=== PATIENT | male | born 1965 | race African-American/Black ===

== ENCOUNTER 2019-05-31 09:56 | Inpatient (IN) | payer OTHER ==
[~2019-05-31] VITALS: Ht 180.3 cm; Wt 87.1 kg
[2019-05-31] MEDS ORDERED: TYLENOL325 MG PO ×2 (10:36→10:37)
[2019-05-31] MEDS ORDERED: DULCOLAX10 MG RECTAL (10:39)
[2019-05-31] MEDS ORDERED: FIORINAL 50-321 EACH PO (10:40)
[2019-05-31] MEDS ORDERED: CIPRODEX OTIC7.5 ML OTIC (10:43)
[2019-05-31] MEDS ORDERED: HEPARIN SO5000 UNIT/ SUBQ (10:45)
[2019-05-31] MEDS ORDERED: KEPPRA100 MG/1 M PO ×2 (10:47→10:49)
[2019-05-31] MEDS ORDERED: PHENYTOIN100 MG/41 PO (10:51)
[2019-05-31] MEDS ORDERED: MIRALAX119 GM PO (10:53)
[2019-05-31] MEDS ORDERED: POTASSIUM20 PO (10:56)
[2019-05-31] MEDS ORDERED: SENNA PLUS 8.61 EACH PO (10:58)
--- NOTE | 2019-05-31 15:00 | NUR ---
1400 ADMITTED TO ROOM 504. PATIENT IS ALERT AND ORIENTED X1 TO PERSON ONLY. 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 [employer]. LUNGS ARE CLEAR. ABD IS SOFT WITH BSX4. VOIDED EDSON COLORED URINE X2. REGULAR DIET WITH THIN LIQUIDS ORDERED FOR PATIENT. CALL LIGHT AT BEDSIDE. ENCOURAGED PO FLUIDS. FALL AND SAFETY PROTOCOLS IN PLACE. HAS OCCASIONAL HEADACH AND BACK PAIN. PT/OT/ST EVALS TO BE DONE IN AM WILL CONTINUE TO MONITER. RING FACER NOTIFIED OF PATIENTS ADMISSION.
--- NOTE | 2019-05-31 17:00 | NUR ---
pt new to [facility] acute rehab from [facility] on [address]. no family or friends present. pt a & o to self. unable to reach family. will cont following as needed for dc needs.
[2019-05-31 19:10] VITALS: BP 133/91
[2019-05-31] MEDS ORDERED: BUTALB-APAP-CA1 EACH PO (19:10)
[2019-05-31 19:17] VITALS: BP 130/83
--- NOTE | 2019-06-01 04:50 | NUR ---
Assessments completed. pt a&o to self. pt knew he was at a hospital but could not tell nurse which one. pt is forgetful and requires reorientation. pt is impulsive when he wants to use the bathroom. bed alarm on and fall prec in place. seizure pads in place. pt stated that he hasn't had a seizure in a long time when asked by the nurse. pt c/o of headache which was relief by tylenol. pt kept trying to dress up and get ready for the day. prn med was given for agitation. pt has been getting up with one assist contact guard and with a walker at times to the bathroom. pt has been drinking alot of water over night which is requiring him to urinate more frequently. there have been no s/s of distress noted. will cont to monitor
[2019-06-01 06:14] LABS: HEMATOCRIT 40.6 % (42.0-52.0); HEMOGLOBIN 13.6 gm/dL (14.0-18.0); MCH 29.8 pg (26.0-34.0); MCHC 33.6 g/dL (28.0-37.0); MCV 88.8 fL (80.0-100.0); RBC 4.57 mil/uL (4.50-6.00); WBC 9.4 thou/uL (4.0-11.0)
[2019-06-01 06:26] LABS: CALCIUM 8.8 mg/dL (8.5-10.1); CREATININE 0.7 mg/dL (0.7-1.3); POTASSIUM 3.8 mmol/L (3.5-5.1)
[2019-06-01 08:03] VITALS: BP 108/74
--- NOTE | 2019-06-01 12:00 | NUR ---
pt was up in wheel chair in dinning room for lunch, not visitor present or family. unable to discuss dcp with pt rt a & o self. will cont following as needed for dc needs .
--- NOTE | 2019-06-01 15:35 | NUR ---
MET WITH SISTER IN ROOM THIS DATE, SISTER PROVIDED PLOF INFORMATION, DETAILED IN PT ADMISSION HISTORY. SISTER PROVIDED FOLLOWING CONTACT INFORMATION, MEENU (SISTER): [phone] DORA (BROTHER): [phone]
[2019-06-01 15:45] LABS: FOLIC ACID 7.6 ng/mL (8.6-58.9); TSH 3.847 uIU/mL (0.358-3.740)
--- NOTE | 2019-06-01 18:05 | NUR ---
ASSUMED CARE AT 0700, PT A&O TO PERSON, CONFUSED AND INPULSIVE AT TIMES. VS STABLE, O2 ON RA. NO IV ACCESS, STAND BY ASSIST WITH GAIT BELT. PT HAD EEG DONE TODAY, AWAITING RESULTS. TOLERATED THERAPY. MEDS CRUSHED WITH APPLESAUCE PER ST. SEIZURE PRECAUTIONS CONTINUED. LAST BM 06/01/19, VOIDS WITH URINAL/BATHROOM. BED IN LOWEST POSITION, CALL LIGHT WITHIN REACH, WILL CONTINUE TO MONITOR PER POC.
[2019-06-01 20:10] VITALS: BP 100/62
--- NOTE | 2019-06-02 04:31 | NUR ---
UP TO TOILET WITH GAIT BELT AND CONTACT GUARD ASSIST, DOES NOT USE CALL LIGHT, BED ALARM ON DUE TO PATIENT GETTING UP IMPULSIVELY TO STAND UP LOOKING OUT THE WINDOW AND WHEN UP TO TOILET. HAS VOIDED HOURLY OVERNIGHT AND HAD ONE LARGE BM. INSISTS ON WEARING CLOTHES AND BRIEF. BEDRAILS PADDED AND PATIENT FREQUENTLY REMINDED TO STAY IN BED FOR HIS OWN SAFETY, FRUSTRATED WITH LIMITS TO THE POINT OF AGITATION, GIVEN ZYPREXA AND AGAIN ENCOURAGED TO LIE DOWN AND GET SOME REST SO THAT HE WILL NOT BE TOO TIRED TO PARTICIPATE IN THERAPY TODAY. DOES NOT SPEAK LOUDLY.
[2019-06-02 08:00] VITALS: BP 136/72
--- NOTE | 2019-06-02 12:45 | NUR ---
ASSUMED CARE AT 0700, PT IMPULSIVE, ALERT AND ORIENTED TO PERSON. NO ACUTE DISTRESS NOTED. VS STABLE, O2 ON RA. PT C/O HEADACHE RELIEVED WITH PRN TYLENOL 650MG. STAND BY ASSIST WITH GAIT BELT, TOLERATES MEDS CRUSHED WITH APPLESAUCE. TOLERATED THERAPY WELL TODAY. NO IV ACCESS. PT CONTINENT AND USES BR, VOID X 2, BM TODAY. BED IN LOWEST POSITION, CALL LIGHT WITHIN REACH, WILL CONTINUE TO MONITOR PER POC.
[2019-06-02 20:15] VITALS: BP 122/74
--- NOTE | 2019-06-03 01:17 | NUR ---
PT ASSESSMENT COMPLETED AND VSS. MEDS GIVEN ORDERED AND WELL TOLERATED. FALL PRECAUTIONS IN PLACE. PT VERY IMPULSIVE AND AGITATED AT TIMES. PT STATING THAT HE WANTS TO GO HOME AND WHY ARE WE TRYING TO KEEP HIM HERE LIKE THIS. PROVIDED MUCH EMOTIONAL SUPPORT. SLEEPING ON AND OFF. MEDICATION FOR AGITATION HELPFUL BUT PT STILL IMPULSIVE. UNSTEADY. PT VERY FAST WHEN GETTING OUT OF BED. HAVING TO RUN FAST TO THE ROOM REPEATEDLY. PT HAD A SOFT BM AND VOIDING LARGE AMOUNTS. WILL CONTINUE TO MONITOR CLOSELY.
[2019-06-03 09:00] VITALS: BP 116/73
--- NOTE | 2019-06-03 10:29 | NUR ---
ASSUMED CARE AT 0700, VSS ON RA. REPORTS FROM NIGHT NURSE THAT PT WAS VERY IMPULSIVE DURING NIGHT AND DIDN'T SLEEP WELL. PT HAS HX OF SMOKING. NOTIFIED ANNIKA AND ASKED IF PT CAN BE ON NICOTINE PATCH AND HAS SLEEPING AID. PT ALERT AND ORIENTED TO PERSON. FOLLOW COMMANDS. PT C/O HEADACHE NOT ABLE TO RATE PAIN PRN FIORCET GIVEN. WAS UNSTEADY GAIT THIS AM, BUT MORE STEADY WHILE WORKING WITH PHYSICAL THERAPIST. PT UP STAND BY ASSIST WITH GAIT BELT TO GO TO BATHROOM FOR URINATION. TOLERATES MEDS WHOLE WITH APPLESAUCE THIS AM WITH ST. KEPPRA LIQUID GIVEN ORDERED. PT HAS HX OF SEIZURE AND ON SEIZURE PRECAUTION. BED RAILS PADDED. OFFERED SUPPORTIVE CARE. DISCUSSED ABOUT CARE PLAN. ENCOURAGED PT TO CALL FOR HELP. PT HAS BEEN COOPERATIVE WELL WITH THIS [employer] ME[employer]IC. TOLERATED THERAPY WELL TODAY. NO IV ACCESS. UP WITH OT AT THIS MOMENT. FALL PRECAUTION IN PLACE. CONTINUE TO BE ON ELOPEMENT RISK WHEN IN WC. UNIT DOORS CLOSED WHEN PT UP. PRECAUTION IN PLACE. CALL LIGHT WITHIN REACH WHEN PT IN ROOM WILL CONTINUE TO MONITOR PER POC.
[2019-06-03 21:10] VITALS: BP 137/75
--- NOTE | 2019-06-04 01:57 | NUR ---
FIORCET AT HS, NO C/O HEADACHE AT THIS TIME. UP TO BATHROOM WITHOUT USING CALL LIGHT. STRONG BUT UNSTEADY GAIT. NEEDS ENCOURAGEMENT TO LIE DOWN AFTER SITTING AT THE EDGE OF BED FOR A FEW MINUTES. FREQUENTLY STATES THAT HE WANTS TO GO HOME. DRINKING WATER AND VOIDING LARGE AMOUNTS.
[2019-06-04 09:22] VITALS: BP 137/75
--- NOTE | 2019-06-04 11:03 | NUR ---
ASSUMED CARE AT 0700, NIGHT RN SAID PT DIDN'T SLEEP WELL EVEN TOOK ZYPREXA AND NEUROTIN. VSS ON RA. PT C/O HEADACHE NOT ABLE TO RATE PAIN PRN TYLENOL GIVEN. IMPULSIVE, FORGETFUL, ALERT TO SELF. REDIRECTABLE. PT UP STAND BY ASSIST WITH GAIT BELT TO GO TO BATHROOM FOR URINATION. CONT B&B HAD BM THIS AM. TOLERATES MEDS WHOLE WITH APPLESAUCE PT HAS HX OF SEIZURE AND ON SEIZURE PRECAUTION. BED RAILS PADDED. OFFERED SUPPORTIVE CARE. DISCUSSED ABOUT CARE PLAN. ENCOURAGED PT TO CALL FOR HELP. PT HAS BEEN COOPERATIVE WELL WITH THIS [employer]. TOLERATED THERAPY WELL TODAY. UP WITH OT AT THIS MOMENT. FALL PRECAUTION IN PLACE. CONTINUE TO BE ON ELOPEMENT RISK WHEN IN WC. UNIT DOORS CLOSED WHEN PT UP. PRECAUTION IN PLACE. CALL LIGHT WITHIN REACH WHEN PT IN ROOM WILL CONTINUE TO MONITOR PER POC.
[2019-06-04 19:04] VITALS: BP 98/59
--- NOTE | 2019-06-05 03:01 | NUR ---
NEEDING ENVOURAGEMENT TO LIE DOWN IN BED AFTER EACH URGENT TRIP TO TOILET, BUT LESS RESTLESS THAN 24 HOURS AGO. CONTACT GUARD ASSIST TO BATHROOM, GAIT IS STRONG BUT UNSTEADILY SWAYING SIDE TO SIDE. PLEASANT, WOULD LIKE TO GO HOME. SIDERAILS PADDED.
[2019-06-05 08:30] VITALS: BP 116/79
--- NOTE | 2019-06-05 18:15 | NUR ---
ASSUMED CARE AT 0700, PT A&O TO PERSON. VS STABLE, O2 ON RA. PT DENIES PAIN BUT STATED SEVERAL TIMES THAT HE WANTS TO GO HOME. PT ATTEMPTED TO LEAVE UNIT CONSTANTLY. REDIRECTED PT WITH LITTLE COOPERATION. PT HAS NO IV ACCESS. PT A STAND BY ASSIST X 1 AND USES BATHROOM, LAST BM 06/04/19. TOLERATES MEDS CRUSHED IN APPLESAUCE. SEIZURE PRECAUTIONS CONTINUED, BED IN LOWEST POSITION, CALL LIGHT WITHIN REACH, WILL CONTINUE TO MONITOR PER POC.
[2019-06-05 20:31] VITALS: BP 138/81
--- NOTE | 2019-06-06 00:44 | NUR ---
PT ALERT AND ORIENTED X 1, CONFUSED. IMPULSIVE, SETS OFF BED ALARM FREQUENTLY. VOIDING WITHOUT DIFFICULTY IN TOILET. PT TAKES MEDS CRUSHED IN APPLESAUCE WITHOUT DIFFICULTY. PT DENIES PAIN OR DISCOMFORT. BED ALARM ON FOR SAFETY. PT EASILY VISIBLE FROM NURSES STATION. PT C/O BEING HUNGRY. SANDWICH PROVIDED AND PT HAS BEEN QUIET SINCE. PT CHECKED ON MORE FREQUENTLY THAN HOURLY ROUNDS.
[2019-06-06 08:00] VITALS: BP 101/67
--- NOTE | 2019-06-06 11:46 | EEG ---
[facility] [place] [address] ELECTROENCEPHALOGRAM Name: LESTER DC Room #: 504 ADM IN M.R.#: [id number] Admission: 05/31/19 Attend Phys: Anoop Obrien MD Discharge: Date of : 61 Report #: [id number] THIS REPORT FOR: //name// CC: Anoop Obrien [facility] physician/PCP DATE OF SERVICE: 06/01/2019 This patient's EEG was done to evaluate the patient for the possibility of seizure. EEG was done by placing the electrode by standard 10-20 system of electrode placement. Both referential and sequential montages were used for recording. Background activity in this patient's EEG is about 8 Hz and 30 microvolt. It is a symmetrical activity. The patient went to sleep that is associated with bilateral slowing and vertex sharp waves. Photic stimulation is unremarkable. Throughout the record, no active epileptiform activity was noticed. IMPRESSION: This patient's EEG does not demonstrate any active epileptiform activity. It is intermixed with theta range slowing on both sides. That is a nonspecific abnormality, which can occur with dementia, encephalopathy, effect of psychotropic medication, etc. Clinical correlation is recommended. <ELECTRONICALLY SIGNED> By: Christopher Murray MD 06/06/19 1146 [id number] Christopher Murray MD /nt
--- NOTE | 2019-06-06 13:12 | NUR ---
Nutrition followup: pt changed to low risk due to excellent intake 75-100% of meals. Continues on mechanically altered chopped diet followed by ST. Pt receives ensure daily but no documentation of this, alerted nsg. Pt unable to communicate with RD. Folate level low-7.6. On folic acid supplement and B12. No new weight since 05/31. Follow weekly.
--- NOTE | 2019-06-06 18:33 | NUR ---
ASSUMED CARE AT 0700, PT A&O TO PERSON, IMPULSIVE ANF FORGETFUL. SEIZURE PRECAUTIONS CONTINUED, STAND BY ASSIST WITH GAIT BELT. PT CONTINUES TO STATE THAT HE WANTS TO GO HOME AND ATTEMPTED TO LEAVE SEVERAL TIMES. NO IV ACCESS, DENIES PAIN. TOLERATED THERAPY, USES BR, LAST BM 06/04/2019, ON ROUTINE LAXATIVES. MEDS CRUSHED WITH APPLESAUCE. BED IN LOWEST POSITION, CALL LIGHT WITHIN REACH, WILL CONTINUE TO MONITOR PER POC.
--- NOTE | 2019-06-06 18:40 | NUR ---
PT DRANK 100% OF ENSURE THAT CAME ON TRAY FOR DINNER
--- NOTE | 2019-06-06 19:04 | HC ---
[facility] [place] [address] CONSULTATION Name: LESTER DC Room #: [facility] ADM IN M.R.#: [id number] Admission: 05/31/19 Attend Phys: Anoop Obrien MD Discharge: Date of : 61 Report #: [id number] THIS REPORT FOR: //name// CC: Anoop Obrien [facility] physician/PCP DATE OF SERVICE: 06/04/2019 ATTENDING PHYSICIAN: Anoop Obrien MD BELL PERSON: Jorge Gamez, PhD CLINICAL PRESENTATION: The patient is a 54-year-old -[place] male admitted to the [facility] Rehabilitation Unit for comprehensive inpatient rehabilitation program. He was initially presented to the [facility] Emergency Room after being found down and unresponsive. He was noted to have seizures en route and oozing blood from the left ear. The patient was intubated and treated in ICU. A CT scan revealed multiple acute traumatic injuries with a left subdural hematoma, bilateral subarachnoid hemorrhage, left temporal bone fracture, and left frontal intraparenchymal hemorrhage. The patient has a history of alcohol and cocaine abuse. His diagnostic assessment on admission to the rehab unit included traumatic subdural hematoma, traumatic subarachnoid hemorrhage, traumatic brain injury with loss of consciousness, status post fall, traumatic skull fracture, seizure disorder, aspiration pneumonia, aphasia, dysphagia, left ear infection, chronic compression fractures, hypertension and polysubstance abuse. A complete description of his medical condition and history along with medications can be found in his medical record. Neuropsychological consultation was requested to provide assistance in the assessment of cognitive and emotional status and to provide recommendations and services. Prior to his recent admission, the patient is reported to have been living with his mother. His mother reportedly has Parkinson's disease. He has a brother and sister who are involved in his care. The patient is reported to have had a remote TBI and seizure disorder. He has required assistance from his brother to manage his medication. 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 Communication deficits were described as interfering with his ability to maintain independence and employment. TECHNIQUES UTILIZED: Clinical interview, review of medical records, staff consultation and behavioral observation, mini mental status exam 2 standard version. EXAMINATION FINDINGS AND CLOCK DRAWING: The patient was alert during the assessment. However, he is amnestic and unable to describe the events leading [facility] [address] [place] [address] CONSULTATION Name: LESTER DC Room #: 504-1 [facility] IN [facility].#: [id number] Admission: 05/31/19 Attend Phys: Anoop Obrien MD Discharge: Date of : 61 Report #: [id number] to his hospitalization. He is not oriented to place or time. Current posttraumatic amnesia is suggested. He has severely impaired insight into his deficits. His speech is tangential and perseverative. The patient denies a history of alcohol or drug abuse. However, it is noted in the chart that he has a severe polysubstance abuse history. His performance on the brief version of the MMSE 2 was extremely low with a raw score of 0/16. He is hard of hearing. He was 0/3 for initial registration, 0/5 for orientation to time, 0/[address] and 0/3 for immediate recall. The patient was able to name 2 common objects. He was unable to read a sentence. Copying task suggests perseveration. Visual spatial construction deficits are noted. He could not draw a clock, place the hands or appropriately place numbers within it. Severe deficits in executive functioning are suggested. The patient is presenting in a state of posttraumatic amnesia. He is not oriented to place or time. Severe deficits in executive functioning, memory and visual spatial coordination are suggested. DIAGNOSTIC IMPRESSION: Delirium, acute, mixed level of activity Major neurocognitive disorder (dementia) -- likely a consequence of a traumatic brain injury and substance abuse -- with poor insight -- extent to be determined, likely moderate to severe. Polysubstance abuse (cocaine and alcohol). RECOMMENDATIONS: Upon discharge, the patient will likely require assistance in the management of medication, finances and nutrition. His family will need to be available to provide both supervision and structure for him to maintain safety. Frequent orientation and speech therapy to assist with cognitive stimulation and use of compensatory strategies to maintain safety. I will also attempt to contact family to clarify premorbid functioning. Thank you very much for allowing me to provide the consultation on this patient. <ELECTRONICALLY SIGNED> By: Jorge Gamez, PhD 06/06/19 [id number] Jorge Gamez, PhD /nt
[2019-06-06 19:12] VITALS: BP 100/60
--- NOTE | 2019-06-07 01:24 | NUR ---
PT ALERT AND ORIENTED X 1, CONFUSED. IMPULSIVE AT TIMES BUT NOT FREQUENTLY THE NIGHT BEFORE. VOIDING WITHOUT DIFFICULTY IN TOILET. PT TAKES MEDS CRUSHED IN APPLESAUCE. PT DENIES PAIN OR DISCOMFORT. BED ALARM ON AT ALL TIMES. PT APPEARS TO BE SLEEPING ON HOURLY ROUNDS.
[2019-06-07 08:00] VITALS: BP 100/66
--- NOTE | 2019-06-07 13:00 | NUR ---
team meeting, recommendation [facility]th with nursing only.
--- NOTE | 2019-06-07 14:47 | NUR ---
ASSESSMENT CHARTED. VSS. PT ALERT AND ORIENTED TO SELF WITH FORGETFULNESS. UP IN THE CHAIR. PARTICIPATED IN PT/OT/ SPEECH. CHECKED FREQUENTLY AND NEEDS MED. BED ALARM ON. REPORTS THAT HE WANTS TO GO HOME. PLAN FOR DISCHARGE ON THURSDAY. PROGRESSING WELL TOWARDS DISCHARGE GOAL. WILL CONTINUE TO MONITOR.
[2019-06-07 19:14] VITALS: BP 113/73
--- NOTE | 2019-06-08 03:06 | NUR ---
ASSUMED CARE AT APPROX 1900 EVENING 06/07. PT SITTING UP IN CHAIR AT CHANGE OF SHIFT. PT PLEASANT AND COOPERATIVE, FORGETFUL STATING HE WANTS TO GO HOME. PT MODIFIED INDEP IN ROOM TOLERATING WELL. PT TOOK HS MEDS WITH NO PROBLEMS. PT APPEARS TO BE SLEEPING SOUNDLY WITH HOURLY ROUNDING CHECKS. CALL LIGHT IN REACH. WILL CONTINUE TO MONITOR.
[2019-06-08 09:00] VITALS: BP 118/72
[2019-06-08] MEDS ORDERED: SENNA PLUS 8.61 EACH PO (10:38)
[2019-06-08] MEDS ORDERED: LEVETIRACE100 MG/1 M PO (10:38)
[2019-06-08] MEDS ORDERED: REMERON 30 MG T30 M1 PO (10:38)
[2019-06-08] MEDS ORDERED: FOLIC ACID1 MG PO (10:38)
[2019-06-08] MEDS ORDERED: VITAMIN B-12500 MCG PO (10:38)
--- NOTE | 2019-06-08 13:27 | NUR ---
DISCHARGE PLANNING. ANTICIPATED DISCHARGE TO HOME WITH HOME HEALTH SERVICES. PATIENT REFERRAL FAXED TO [facility]. CALL PLACED TO SERVANDO LUCAS TO NOTIFY. AWAITING RESPONSE.
[2019-06-08 13:46] VITALS: BP 118/72
--- NOTE | 2019-06-08 15:15 | H ---
[facility] [place] [address] HISTORY AND PHYSICAL Name: LESTER DC Room #: 504-1 [facility] IN M.R.#: [id number] Admission: 05/31/19 Attend Phys: Anoop Obrien MD Discharge: 06/08/19 Date of : 61 Report #: [id number] THIS REPORT FOR: //name// CC: Anoop Obrien [facility] physician/PCP DATE OF SERVICE: 05/31/2019 HISTORY AND PHYSICAL AND POST-ADMISSION PHYSICIAN EVALUATION HISTORY OF PRESENT ILLNESS: This is a 54-year-old -[place] male who originally presented to [facility] ER after being found down and unresponsive on 05/19/2019. He was noted to have seizures en route. He had blood oozing from his left ear. He was intubated, treated in the ICU. CT obtained revealed multiple acute traumatic injuries with a left subdural hematoma, bilateral subarachnoid hemorrhage, left temporal bone fracture extending into the external auditory canal and middle ear cavity, left frontal intraparenchymal hemorrhage. He also has T5-T8, L4-L5, chronic compression fracture. He was followed closely by Neurosurgery and Neurology, seizure medications adjusted. He failed a swallow evaluation, was placed on pureed with honey thickened liquids. He was treated for aspiration pneumonia. He does have a history of alcohol and cocaine abuse. Please see the full history and physical. As far as past medical history, habits, and social history, see the history and physical. MEDICATIONS: Please see the MAR. REVIEW OF SYSTEMS: Limited verbalizations. No specific complaints of chest pain, shortness of breath or abdominal discomfort. PHYSICAL EXAMINATION: GENERAL: A 54-year-old -[place] male. He is a limited historian. Limited verbalizations. HEENT: Facies appeared symmetric. EOMs appeared to be full. He will follow basic 1 step commands. CHEST: Sounded clear to auscultation. CARDIOVASCULAR: Regular rate and rhythm. ABDOMEN: Bowel sounds positive, nontender. EXTREMITIES: Functional range of motion of both upper and lower extremities, upper extremity strength is probably a 4-/5. Lower extremities, is probably 4- to 3+. He has been min assist with sit to stand. Soft spoken with speech somewhat difficult to understand. ASSESSMENT: A 54-year-old -[place] male with the following problem [address] [address] HISTORY AND PHYSICAL Name: LESTER DC Room #: [address] [place] [address] IN M.R.#: [id number] Admission: 05/31/19 Attend Phys: Anoop Obrien MD Discharge: 06/08/19 Date of : 61 Report #: [id number] list: 1. Traumatic subdural hematoma. 2. Traumatic subarachnoid hemorrhage. 3. Traumatic brain injury with loss of consciousness, status post fall. 4. Traumatic skull fracture. 5. Seizure disorder. 6. Aspiration pneumonia, on modified diet. 7. Aphasia. 8. Dysphagia. 9. Left ear infection, noted to have hearing loss. 10. Chronic compression fractures T5-T8, L4-L5. 11. Hypertension. 12. Polysubstance abuse. PLAN: The patient has been admitted for acute in-hospital inpatient rehabilitation. From a postadmission physician evaluation perspective, there are no relevant changes since the preadmission screening. Please see the above review of prior and current medical and functional conditions and comorbidities. Please see the patient's previous and current functional status. As far as risk of complications, he has the multiple medical comorbidities as noted above. Initial plan of care involves the interdisciplinary acute inpatient rehabilitation program. Measurable functional goals would be for the patient to become modified independent with transfers, mobility, ADLs, improved cognition, so that he can hopefully return back to his home setting. Prognosis is reasonably good. Estimated length of stay is probably at least 10-14 days pending progress. We will need to see how he does. Potential barriers would include his multiple medical comorbidities and decreased functional status as well as cognitive issues and swallowing. The plan is to go home with his sister. <ELECTRONICALLY SIGNED> By: Anoop Obrien MD 06/08/19 1515 0833 1000 Anoop Obrien MD /nt
--- NOTE | 2019-06-08 15:15 | PLAN ---
[facility] [place] [address] REHAB UNIT PLAN OF CARE Name: LESTER DC Room #: 504-1 [facility] IN M.R.#: [id number] Admission: 05/31/19 Attend Phys: Anoop Obrien MD Discharge: 06/08/19 Date of : 61 Report #: [id number] THIS REPORT FOR: //name// CC: Anoop Obrien [facility] physician/PCP DATE OF SERVICE: 06/03/2019 PROGRESS NOTE/OVERALL PLAN OF CARE SUBJECTIVE: The patient tends to be impulsive, is right across from the nurse's station. He has a bed alarm in place. We have been working with him in therapies with transfer standby assistance, gait standby assistance 150 feet without a device and occupational therapy, he is mod assist, lower body dressing. He has severe comprehensive deficits. He is on mechanical soft diet with thin liquids. Clarification has been obtained. He did have a prior head injury 30 years ago with premorbid aphasia. ASSESSMENT: 1. Traumatic subdural hematoma noted. 2. Traumatic subarachnoid hemorrhage. 3. TBI with loss of consciousness, status post fall. 4. Traumatic skull fracture. 5. Seizure disorder. 6. Aspiration pneumonia. 7. Aphasia. 8. Dysphagia. 9. Left ear infections last hearing loss. 10. Chronic compression fracture. 11. Hypertension. 12. Polysubstance abuse. 13. Past history of head injury 30 years ago with aphasia. PLAN: The overall plan of care is based on the preadmission screen, post-admission physician evaluation and information garnered from therapy assessments. 1. Estimated length of stay is probably at least 7-10 days, pending progress and potentially longer. 2. Medical prognosis is reasonably good. 3. Anticipated interventions includes the interdisciplinary acute inpatient rehabilitation program. 4. Anticipated functional outcomes are for the patient to further improve with mobility, ADLs, cognition, so he can hopefully return back close to his baseline status, return back to the home setting. 5. Discharge destination would be back to the home setting. He has been living with his mom and brother, sister will be involved as well. [address] [address] REHAB UNIT PLAN OF CARE Name: LESTER DC Room #: 504-1 [facility] IN M.R.#: [id number] Admission: 05/31/19 Attend Phys: Anoop Obrien MD Discharge: 06/08/19 Date of : 61 Report #: [id number] 6. Expected therapy by discipline includes PT, OT and speech 1 hour per day each five days a week throughout the duration of the acute inpatient rehabilitation stay. <ELECTRONICALLY SIGNED> By: Anoop Obrien MD 06/08/19 [phone] nAoop Obrien MD /PMT
--- NOTE | 2019-06-08 16:30 | NUR ---
sia notified that [facility] could do i nursing visit if that was ok with pt. sia sent information to md, and palliative senior np, agree if pt medication, has family support and keeps follow up appointment at [facility] than 1 visit would be fine. dr thomas will follow for [facility]h needs.
--- NOTE | 2019-06-08 20:13 | NUR ---
PT A&O TO PERSON ONLY, NO ACUTE DISTRESS NOTED. VS STABLE, O2 ON RA. PTS MOD-I IN ROOM. NO IV ACCESS, TOLERATED MEDS WHOLE WITH THIN LIQUIDS. LAST BM 06/06/19, USES BR TO VOID. PT D/C'D TODAY AT 2PM WITH FAMILY. HH WILL FOLLOW UP WITH FAMILY. DISCHARGE INSTRUCTIONS AND SEIZURE PRECAUTIONS DISCUSSED WITH PT AND FAMILY. FAMILY COMMUNICATED UNDERSTANDING. PT LEFT WITH TRANSPORT SERVICES IN W/C TO [facility] WHERE FAMILY TOOK PT HOME.
== END 2019-06-08 14:10 | disposition home health service (06) | DRG 82 ==
PROVIDERS: Nurse Practitioner Family; ADMIT Physical Medicine & Rehabilitation
DX: S06.5X9A Traumatic subdural hemorrhage with loss of consciousness of unspecified duration, initial encounter (principal); J69.0 Pneumonitis due to inhalation of food and vomit; S22.059A Unspecified fracture of T5-T6 vertebra, initial encounter for closed fracture; S22.069A Unspecified fracture of T7-T8 vertebra, initial encounter for closed fracture; S32.049A Unspecified fracture of fourth lumbar vertebra, initial encounter for closed fracture; S32.059A Unspecified fracture of fifth lumbar vertebra, initial encounter for closed fracture; R47.01 Aphasia; G93.49 Other encephalopathy; I10 Essential (primary) hypertension; R13.10 Dysphagia, unspecified; F19.10 Other psychoactive substance abuse, uncomplicated; F10.10 Alcohol abuse, uncomplicated; F14.10 Cocaine abuse, uncomplicated; S02.19XA Other fracture of base of skull, initial encounter for closed fracture; F17.210 Nicotine dependence, cigarettes, uncomplicated; G40.409 Other generalized epilepsy and epileptic syndromes, not intractable, without status epilepticus; S06.6X9A Traumatic subarachnoid hemorrhage with loss of consciousness of unspecified duration, initial encounter; W18.39XA Other fall on same level, initial encounter; G40.909 Epilepsy, unspecified, not intractable, without status epilepticus; F01.50 Vascular dementia, unspecified severity, without behavioral disturbance, psychotic disturbance, mood disturbance, and anxiety; G47.00 Insomnia, unspecified; Y93.89 Activity, other specified; Y92.89 Other specified places as the place of occurrence of the external cause; Y99.8 Other external cause status; Z79.899 Other long term (current) drug therapy; Z23 Encounter for immunization
CPT/HCPCS: 10112